=== PATIENT | female | born 1995 | race Caucasian/White ===

== ENCOUNTER 2019-02-08 23:30 | Emergency (ER) | payer OTHER ==
--- NOTE | 2019-02-09 00:24 | ER Document Report ---
ED Medical Screen (RME) - General Chief Complaint: Overdose Stated Complaint: POSSIBLE OVER DOSE Time Seen by Provider: 02/09/19 00:16 Mode of Arrival: Medic Information source: Patient Notes: 24-year-old female presented to ED for possible overdose. She states he was seen in her home by EMS and they gave her Narcan at the home for overdose. She states she does not know what she overdosed on. She states she has no idea what she took tonight. She states she thought she was smoking pot and snorting a line of cocaine. She states he has never had anything like this before. She is alert and answering questions at this time. She states she does smoke pot occasionally and this is her third time of using cocaine. She states she lives with her significant other. She does not know anything about what happened tonight except for that she was smoking pot and snorting a line. TRAVEL OUTSIDE OF THE [place] IN LAST 30 DAYS: No Physical Exam - Vital signs Vitals: Temp Pulse Resp BP Pulse Ox 97.4 F 89 20 104/64 97 02/08/19 23:37 02/08/19 23:37 02/08/19 23:37 02/08/19 23:37 02/08/19 23:37 Course - Vital Signs Vital signs: Temp Pulse Resp BP Pulse Ox 97.4 F 89 20 104/64 97 02/08/19 23:37 02/08/19 23:37 02/08/19 23:37 02/08/19 23:37 02/08/19 23:37
--- NOTE | 2019-02-09 00:38 | ER Document Report ---
ED General - General Chief Complaint: Overdose Stated Complaint: POSSIBLE OVER DOSE Time Seen by Provider: 02/09/19 00:16 Primary Care Provider: [facility] [Provider Group] - Follow up as needed Mode of Arrival: Medic TRAVEL OUTSIDE OF THE [place] IN LAST 30 DAYS: No - HPI Notes: Patient is a 24-year-old female that presents to the emergency department for chief complaint of overdose. Patient states that tonight she was smoking marijuana and snorted what she believed was a line of cocaine. She states it was a white powdery substance. She did not ask the people with the drugs from what it was and just assumed it was cocaine. Patient did receive 2 mg intranasal Narcan by EMS in the field for shallow respirations. Narcan reversed her altered mentation. Patient has been ambulatory and conversational since receiving Narcan. She denies history of opiate abuse in the past. She denied any intentional self-harm tonight. Patient denies any alcohol ingestion. Currently she is complaining of a mild diffuse headache and feeling tired. Past Medical History: Depression, anxiety Past Surgical History: Tonsillectomy Social History: Occasional marijuana, occasional cocaine, denies tobacco use Family History: Reviewed and noncontributory for presenting illness Allergies: Reviewed, see documented allergy list. REVIEW OF SYSTEMS: CONSTITUTIONAL : No fever No chills No diaphoresis No recent illness Fatigue EENT: No vision changes No congestion No sore throat CARDIOVASCULAR: No chest pain No palpitations RESPIRATORY: No shortness of breath No cough No difficulty breathing GASTROINTESTINAL: No abdominal pain No nausea No vomiting No diarrhea GENITOURINARY: No dysuria No hematuria No difficulty urinating MUSCULOSKELETAL: No back pain No leg pain No arm pain SKIN: No rashes No lesions LYMPHATIC: No swollen, enlarged glands. NEUROLOGICAL: No lightheadedness headache No weakness No paresthesias PSYCHIATRIC: No anxiety No depression PHYSICAL EXAMINATION: Vital signs reviewed, nursing noted reviewed. GENERAL: Mildly somnolent, well-nourished and in no acute distress. HEAD: Atraumatic, normocephalic. EYES: Pupils +2 and symmetric and reactive to light bilaterally, extraocular movements intact, sclera anicteric, conjunctiva are injected ENT: nares patent, oropharynx clear without exudates. Moist mucous membranes. NECK: Normal range of motion, supple without lymphadenopathy LUNGS: Breath sounds clear to auscultation bilaterally and equal. No wheezes rales or rhonchi. HEART: Regular rate and rhythm without murmurs ABDOMEN: Soft, nontender, normoactive bowel sounds. No rebound, guarding, or rigidity. No masses appreciated. EXTREMITIES: Nontender, good range of motion, no pitting or edema. NEUROLOGICAL: No focal neurological deficits. Moves all extremities spontaneously Motor and sensory grossly intact on exam. PSYCH: Normal mood, normal affect. Not suicidal SKIN: Warm, Dry, normal turgor, no rashes or lesions noted on exposed skin Past Medical History - General Information source: Patient - Social History Smoking Status: Current Every Day Smoker Family History: Reviewed & Not Pertinent Physical Exam - Vital signs Vitals: Temp Pulse Resp BP Pulse Ox 97.4 F 89 20 104/64 97 02/08/19 23:37 02/08/19 23:37 02/08/19 23:37 02/08/19 23:37 02/08/19 23:37 Course - Re-evaluation Re-evalutation: 02/09/19 00:36 Vitals reviewed. Nursing notes reviewed. Patient is ambulatory and oxygenating well on room air. She does have conjunctival injection and is mildly somnolent consistent with opiate overdose and marijuana use. Patient received 2 mg of in tranasal Narcan in the field which reversed her overdose, this is consistent with acute opiate overdose. Patient's overdose was accidental and she is not actively suicidal. Patient placed on telemetry monitoring. She will be monitored in the emergency room for recurrence of her unresponsive state. 02/09/19 01:20 After my initial evaluation patient did become more somnolent and O2 dropped to 88% on room air. She was given a repeat dose of 2 mg IV Narcan which did improve her mentation. She is still somnolent however her O2 is now 99% on RA. We will continue to monitor 02/09/19 01:44 Patient's urine drug screen is positive for amphetamines, she states she is taking Adderall currently for ADHD. She denies methamphetamine use. Patient screen was negative for opiates and I did discuss this finding with the laborer general who believes fentanyl would not show positive on the initial test. Confirmatory fentanyl testing has been ordered on her urine which will take reportedly 1 to 4 days to result. 02/09/19 04:12 Since receiving the Narcan in the emergency room patient has remained alert and has been oxygenating well on room air. She has ambulated without difficulty. She is speaking in full sentences. Patient has a mild urinary tract infection and leukocytosis but is otherwise stable with no sepsis. She will be started on Keflex for her acute UTI. We did discuss stopping illicit drug use and she was referred to [facility] for addiction medicine follow-up. She will be given [facility] for urinary tract infection follow-up. Patient is stable for discharge. Laboratory 02/09/19 02/09/19 02/09/19 00:40 00:40 03:00 WBC 13.5 H RBC 4.36 Hgb 10.9 L Hct 34.1 L MCV 78 L MCH 25.0 L MCHC 32.1 RDW 15.7 H Plt Count 332 Seg Neutrophils % 88.8 H Lymphocytes % 5.9 L Monocytes % 4.9 Eosinophils % 0.0 Basophils % 0.4 Absolute Neutrophils 12.0 H Absolute Lymphocytes 0.8 Absolute Monocytes 0.7 Absolute Eosinophils 0.0 Absolute Basophils 0.1 Sodium Potassium Chloride Carbon Dioxide Anion Gap BUN Creatinine Est GFR ( Amer) Est GFR (Non-Af Amer) Glucose Calcium Urine Color YELLOW Urine Appearance CLOUDY Urine pH 6.0 Ur Specific Chad[place] 1.020 Urine Protein 30 H Urine Glucose (UA) 150 H Urine Ketones NEGATIVE Urine Blood NEGATIVE Urine Nitrite NEGATIVE Urine Bilirubin NEGATIVE Urine Urobilinogen NEGATIVE Ur Leukocyte Esterase MODERATE H Urine WBC (Auto) 9 Urine RBC (Auto) 1 Squamous Epi Cells Auto 4 Amorphous Sediment Auto TRACE Urine Mucus (Auto) FEW Urine Ascorbic Acid NEGATIVE Urine Opiates Screen NEGATIVE Urine Methadone Screen NEGATIVE Ur Barbiturates Screen NEGATIVE Ur Phencyclidine Scrn NEGATIVE Ur Amphetamines Screen UNCONFIRMED POSITIVE U Benzodiazepines Scrn NEGATIVE Urine Cocaine Screen NEGATIVE U Marijuana (THC) Screen UNCONFIRMED POSITIVE Serum Alcohol 02/09/19 03:00 WBC RBC Hgb Hct MCV MCH MCHC RDW Plt Count Seg Neutrophils % Lymphocytes % Monocytes % Eosinophils % Basophils % Absolute Neutrophils Absolute Lymphocytes Absolute Monocytes Absolute Eosinophils Absolute Basophils Sodium 143.1 Potassium 4.4 Chloride 106 Carbon Dioxide 29 Anion Gap 8 BUN 8 Creatinine 0.68 Est GFR ( Amer) > 60 Est GFR (Non-Af Amer) > 60 Glucose 133 H Calcium 9.3 Urine Color Urine Appearance Urine pH Ur Specific Chad[place] Urine Protein Urine Glucose (UA) Urine Ketones Urine Blood Urine Nitrite Urine Bilirubin Urine Urobilinogen Ur Leukocyte Esterase Urine WBC (Auto) Urine RBC (Auto) Squamous Epi Cells Auto Amorphous Sediment Auto Urine Mucus (Auto) Urine Ascorbic Acid Urine Opiates Screen Urine Methadone Screen Ur Barbiturates Screen Ur Phencyclidine Scrn Ur Amphetamines Screen U Benzodiazepines Scrn Urine Cocaine Screen U Marijuana (THC) Screen Serum Alcohol < 10 Chest X-Ray 02/09/19 00:17 IMPRESSION: No acute cardiopulmonary findings. Head CT 02/09/19 00:46 IMPRESSION: No acute intracranial findings. - Vital Signs Vital signs: Temp Pulse Resp BP Pulse Ox 97.4 F 89 17 128/75 H 97 02/08/19 23:37 02/08/19 23:37 02/09/19 03:00 02/09/19 01:00 02/09/19 03:00 - Laboratory Result Diagrams: 02/09/19 03:00 02/09/19 03:00 Laboratory results interpreted by me: 02/09/19 02/09/19 02/09/19 00:40 03:00 03:00 WBC 13.5 H Hgb 10.9 L Hct 34.1 L MCV 78 L MCH 25.0 L RDW 15.7 H Seg Neutrophils % 88.8 H Lymphocytes % 5.9 L Absolute Neutrophils 12.0 H Glucose 133 H Urine Protein 30 H Urine Glucose (UA) 150 H Ur Leukocyte Esterase MODERATE H - EKG Interpretation by Me Additional EKG results interpreted by me: 02/09/19 00:38 Interpreted by myself 0030: Normal sinus rhythm, rate 69, normal axis, no ectopy, no STEMI Discharge - Discharge Clinical Impression: Acute UTI Opiate overdose Qualifiers: Encounter type: initial encounter Injury intent: accidental or unintentional Qualified Code(s): T40.601A - Poisoning by unspecified narcotics, accidental (unintentional), initial encounter Anemia Qualifiers: Anemia type: unspecified type Qualified Code(s): D64.9 - Anemia, unspecified Condition: Stable Disposition: HOME, SELF-CARE Instructions: Overdose ([facility]), Urinary Tract Infection ([facility]), Cephalexin ([facility]), Anemia ([facility]) Additional Instructions: Please return to the emergency department if you have any worsening, or concern of your symptoms. Please return to the emergency department if you develop chest pain, difficulty breathing, severe abdominal pain, or ongoing vomiting. Please follow-up with your primary care physician in 2-3 days and any other recommended physicians. If prescribed, take all medications as directed. If you have any questions or concerns do not hesitate to return the emergency department for evaluation. Do not snort, ingest, smoke, or inject any illicit drugs. Prescriptions: Cephalexin Monohydrate [Keflex 500 mg Capsule] 500 mg PO Q6H 5 Days capsule Referrals: [facility] [Provider Group] - Follow up as needed [facility] [Provider Group] - Follow up in 3-5 days
[2019-02-09] MEDS ORDERED: NALOXONE HCL INJ 2 MG/2 ML DISP.SYRIN IV ONE (00:58)
[2019-02-09 01:08] LABS: AMORPHOUS SEDIMENT,URINE TRACE /HPF; APPEARANCE,URINE CLOUDY; BILIRUBIN,URINE NEGATIVE (NEGATIVE); COLOR,URINE YELLOW; GLUCOSE, URINE 150 mg/dL (NEGATIVE); KETONES,URINE NEGATIVE (NEGATIVE); LEUKOCYTE ESTERASE,URINE MODERATE (NEGATIVE); NITRITE,URINE NEGATIVE (NEGATIVE); PROTEIN,URINE 30 mg/dL (NEGATIVE); UROBILINOGEN,URINE NEGATIVE mg/dL (<2.0)
[2019-02-09 01:24] LABS: URINE AMPHETAMINES SCREEN UNCONFIRMED POSITIVE; URINE BARBITURATES SCREEN NEGATIVE; URINE BENZODIAZEPINES SCREEN NEGATIVE; URINE COCAINE SCREEN NEGATIVE; URINE MARIJUANA (THC) SCREEN UNCONFIRMED POSITIVE; URINE METHADONE SCREEN NEGATIVE; URINE PHENCYCLIDINE SCREEN NEGATIVE
--- NOTE | 2019-02-09 01:58 | RADIOLOGY REPORT (SQ) ---
CLINICAL HISTORY: headache COMPARISON: None. TECHNIQUE: CT HEAD WITHOUT IV CONTRAST on 02/09/2019 12:46 AM CDT This exam was performed according to our departmental dose-optimization program, which includes automated exposure control, adjustment of the mA and/or kV according to patient size and/or use of iterative reconstruction technique. FINDINGS: There is no acute hemorrhage, mass effect or midline shift. Hunter-white differentiation is preserved. There is no hydrocephalus. There is no significant volume loss for age. The calvarium is intact. Orbits and globes are unremarkable. The paranasal sinuses are clear. Mastoid air cells are clear. IMPRESSION: No acute intracranial findings.
--- NOTE | 2019-02-09 02:10 | RADIOLOGY REPORT (SQ) ---
EXAM DESCRIPTION: XR CHEST 2 VIEWS COMPLETED DATE/TME: 02/09/2019 00:17 CLINICAL HISTORY: 24 years Female, Drug overdose has received Narcan by EMS COMPARISON: None. NUMBER OF VIEWS/TECHNIQUE: 2, Frontal, Lateral FINDINGS: Adequate lung volume, clear parenchyma, normal cardiac silhouette, and intact bony thorax. IMPRESSION: No acute cardiopulmonary findings.
[2019-02-09 03:27] LABS: ABSOLUTE BASOPHILS # (AUTO) 0.1 10^3/uL (0.0-0.2); ABSOLUTE LYMPHOCYTES (AUTO) 0.8 10^3/uL (0.5-4.7); ABSOLUTE MONOCYTES (AUTO) 0.7 10^3/uL (0.1-1.4); BASOPHILS % (AUTO) 0.4 % (0-2); HEMATOCRIT 34.1 % (36.0-47.0); HEMOGLOBIN 10.9 g/dL (12.0-15.5); LYMPHOCYTES % (AUTO) 5.9 % (13-45); MEAN CORPUSCULAR HGB CONC 32.1 g/dL (32.0-36.0); MEAN CORPUSCULAR VOLUME 78 fl (80-97); MONOCYTES % (AUTO) 4.9 % (3-13); PLATELET COUNT 332 10^3/uL (150-450); RED BLOOD COUNT 4.36 10^6/uL (3.72-5.28); RED CELL DISTRIBUTION WIDTH 15.7 % (11.5-14.0); SEGMENTED NEUTROPHILS % (AUTO) 88.8 % (42-78); TOTAL CELLS COUNTED % (AUTO) 100 %; WHITE BLOOD COUNT 13.5 10^3/uL (4.0-10.5)
[2019-02-09 03:40] LABS: ANION GAP 8 (5-19); BLOOD UREA NITROGEN 8 mg/dL (7-20); CALCIUM 9.3 mg/dL (8.4-10.2); CARBON DIOXIDE 29 mmol/L (22-30); CHLORIDE 106 mmol/L (98-107); GLUCOSE 133 mg/dL (75-110); POTASSIUM 4.4 mmol/L (3.6-5.0); SODIUM 143.1 mmol/L (137-145)
[2019-02-09 03:41] LABS: ALCOHOL < 10 mg/dL (NONE DETECTED)
[2019-02-09] MEDS ORDERED: CEPHALEXIN 500 MG CAPSULE PO ONE (04:10)
[2019-02-09 04:55] VITALS: BP 142/78
--- NOTE | 2019-02-09 07:49 | EKG REPORT ---
SEVERITY:- NORMAL ECG - SINUS RHYTHM : Confirmed by: Alexis Alvarez MD 09-Feb-2019 07:48:48
== END 2019-02-09 05:04 | disposition home or self-care (01) ==
LOC: ER 23:30
DX: N39.0 Urinary tract infection, site not specified (principal); T40.601A Poisoning by unspecified narcotics, accidental (unintentional), initial encounter; D64.9 Anemia, unspecified; R51 Headache; R53.83 Other fatigue; F90.9 Attention-deficit hyperactivity disorder, unspecified type; F17.200 Nicotine dependence, unspecified, uncomplicated
CPT/HCPCS: 93005; 99284; 96374; 36415; 80307 ×2; 85025; 80048; 81001; 71046; 70450; 93010; J2310

== ENCOUNTER 2019-09-20 06:27 | Emergency (ER) | payer OTHER ==
[2019-09-20 07:10] LABS: ABSOLUTE BASOPHILS # (AUTO) 0.1 10^3/uL (0.0-0.2); ABSOLUTE LYMPHOCYTES (AUTO) 1.4 10^3/uL (0.5-4.7); ABSOLUTE MONOCYTES (AUTO) 0.5 10^3/uL (0.1-1.4); ABSOLUTE NEUT (AUTO) 6.5 10^3/uL (1.7-8.2); BASOPHILS % (AUTO) 0.8 % (0-2); EOSINOPHILS % (AUTO) 0.3 % (0-6); HEMATOCRIT 38.3 % (36.0-47.0); HEMOGLOBIN 13.1 g/dL (12.0-15.5); LYMPHOCYTES % (AUTO) 16.2 % (13-45); MEAN CORPUSCULAR HEMOGLOBIN 29.1 pg (27.0-33.4); MEAN CORPUSCULAR HGB CONC 34.2 g/dL (32.0-36.0); MEAN CORPUSCULAR VOLUME 85 fl (80-97); MONOCYTES % (AUTO) 6.1 % (3-13); PLATELET COUNT 338 10^3/uL (150-450); RED CELL DISTRIBUTION WIDTH 14.8 % (11.5-14.0); SEGMENTED NEUTROPHILS % (AUTO) 76.6 % (42-78); TOTAL CELLS COUNTED % (AUTO) 100 %; WHITE BLOOD COUNT 8.4 10^3/uL (4.0-10.5)
[2019-09-20 07:32] LABS: ALKALINE PHOSPHATASE 83 U/L (38-126); ANION GAP 14 (5-19); ASPARTATE AMINO TRANSFERASE 29 U/L (14-36); BILIRUBIN,DIRECT 0.2 mg/dL (0.0-0.4); BILIRUBIN,TOTAL 0.8 mg/dL (0.2-1.3); BLOOD UREA NITROGEN 5 mg/dL (7-20); CALCIUM 10.3 mg/dL (8.4-10.2); CARBON DIOXIDE 21 mmol/L (22-30); CHLORIDE 105 mmol/L (98-107); GLUCOSE 88 mg/dL (75-110); POTASSIUM 3.9 mmol/L (3.6-5.0); TOTAL PROTEIN 8.3 g/dL (6.3-8.2)
[2019-09-20] MEDS ORDERED: DICYCLOMINE HCL INJ 20 MG/2 ML AMPULE IM ONE (08:09)
[2019-09-20] MEDS ORDERED: NORMAL SALINE 1000 ML 1,000 ML IV ONE (08:09)
[2019-09-20] MEDS ORDERED: ONDANSETRON HCL INJ/PF 4 MG/2 ML SDV IV ONE (08:09)
[2019-09-20] MEDS ORDERED: KETOROLAC TROMETHAMINE 60 MG/2 ML SDV IV ONE (08:09)
--- NOTE | 2019-09-20 08:22 | ER Document Report ---
ED General - General Chief Complaint: Vomiting Stated Complaint: VOMITING BLOOD,STOMACH PAIN,DIZZY Time Seen by Provider: 09/20/19 07:45 Notes: 24-year-old female presents emergency department complaining of intermittent severe migratory abdominal pain that is gotten worse over the past 2 nights. It was associated with nausea 2 nights ago and she developed vomiting last evening. Emesis was initially clear but then progressed to having streaks of blood in it. No massive hematemesis. Patient states that the pain started in her upper abdomen and has now moved to her lower abdomen. It is associated with dysuria however she states she has recurrent UTIs and always has dysuria, states it is unchanged from baseline. States she is still taking her prophylactic Macrodantin prescribed by her urologist. Denies any fevers. TRAVEL OUTSIDE OF THE [place] IN LAST 30 DAYS: No - Related Data Allergies/Adverse Reactions: No Known Allergies Allergy (Verified 09/20/19 08:15) Home Medications: adderall. xanax Past Medical History - General Information source: Patient - Social History Smoking Status: Never Smoker Chew tobacco use (# tins/day): No Frequency of alcohol use: Social Drug Abuse: None Family History: Reviewed & Not Pertinent Patient has suicidal ideation: No Patient has homicidal ideation: No Renal/ Medical History: Denies: Hx Peritoneal Dialysis Past Surgical History: Reports: Hx Breast Surgery - right lumpectomy, Hx Tons illectomy Review of Systems - Review of Systems Constitutional: No symptoms reported EENT: No symptoms reported Respiratory: No symptoms reported Gastrointestinal: See HPI Genitourinary: See HPI Female Genitourinary: denies: Vaginal discharge, Vaginal bleeding -: Yes All other systems reviewed and negative Physical Exam - Vital signs Vitals: Temp Pulse Resp BP Pulse Ox 97.6 F 91 18 134/84 H 100 09/20/19 06:37 09/20/19 06:37 09/20/19 06:37 09/20/19 06:37 09/20/19 06:37 Interpretation: Normal - Notes Notes: GENERAL: Alert, interacts well. No acute distress. HEAD: Normocephalic, atraumatic EYES: Pupils equal, round and reactive to light, extraocular movements intact. ENT: Oral mucosa moist, tongue midline. NECK: Full range of motion, supple, trachea midline. LUNGS: Clear to auscultation bilaterally, no wheezes, rales or rhonchi, no respiratory distress. HEART: Regular rate and rhythm, no murmurs, gallops, rubs. ABDOMEN: Soft, suprapubic, right lower quadrant and right mid abdominal tenderness palpation without guarding, rigidity, rebounding, nondistended, bowel sounds present in all 4 quadrants. EXTREMITIES: Moves all 4 extremities spontaneously, no edema, radial and dorsalis pedis pulses 2/4 bilaterally. No cyanosis. NEUROLOGICAL: Alert and oriented x3, normal speech. PSYCH: Normal mood, normal affect. SKIN: Warm, Dry, normal turgor, no rashes or lesions noted. Course - Re-evaluation Re-evalutation: 09/20/19 09:56 CBC unremarkable, no anemia, CMP shows slightly low CO2 at 21 otherwise unremarkable, lipase normal, hCG negative, urinalysis shows moderate blood and large leukocyte esterase, this is concerning for possible infected obstructing stone, CT scan was ordered, does not show any signs of stone, appendix is normal. Urine is sent for culture. Patient has a history of recurrent urinary tract infection. Also has a history of not completing her course of treatment when diagnosed with UTI per boyfriend at bedside. Patient is strongly encouraged to finish her antibiotics and follow-up with urology as an outpatient to continue working up why she has recurrent urinary tract infections. Patient also admits to incomplete bladder emptying that has been going on for several years. Again patient is encouraged to follow-up with urology as an outpatient. Discharged home. 09/20/19 09:57 Photograph of patient's emesis is shown to me at bedside, there are very small streaks of blood, no evidence of massive hematemesis. Suspect Rossy-Mix tears from repeated gagging and vomiting. No evidence of life-threatening etiology. No indication for Carafate or antacids. - Vital Signs Vital signs: Temp Pulse Resp BP Pulse Ox 97.6 F 91 18 134/84 H 100 09/20/19 06:37 09/20/19 06:37 09/20/19 06:37 09/20/19 06:37 09/20/19 06:37 - Laboratory Result Diagrams: 09/20/19 06:50 09/20/19 06:50 Laboratory results interpreted by me: 09/20/19 09/20/19 09/20/19 06:50 06:50 08:00 RDW 14.8 H Carbon Dioxide 21 L BUN 5 L Calcium 10.3 H Total Protein 8.3 H Urine Protein 30 H Urine Ketones 20 H Urine Blood MODERATE H Ur Leukocyte Esterase LARGE H Discharge - Discharge Clinical Impression: Acute cystitis Qualifiers: Hematuria presence: with hematuria Qualified Code(s): N30.01 - Acute cystitis with hematuria Vomiting Qualifiers: Vomiting type: hematemesis Nausea presence: with nausea Qualified Code(s): K92.0 - Hematemesis Condition: Stable Disposition: HOME, SELF-CARE Additional Instructions: Urinary Tract Infection Your evaluation indicates that you have a urinary tract infection. This is due to germs growing in the bladder. This is a common problem. This infection usually responds quickly to antibiotics. Your antibiotic should be taken exactly as prescribed. Drink plenty of fluids -- three to four quarts a day. Occasionally, a bladder anesthetic will be prescribed to help stop the feeling of urgency until the antibiotic has a chance to clear the infection. This may cause your urine to be dark orange. This is called Azo, you may get it [id number]. It is also available in a generic form known as Pyridium. Certain urine infections require a culture. If the doctor obtained a culture, the results will be back in two days. You should call to see if a change in treatment is needed. A repeat urinalysis after you finish treatment is often recommended. The physician will let you know if further testing is required. Call the doctor if you develop fever, chills, flank pain, inability to urinate, or blood in the urine. Please continue to follow-up with your urologist as an outpatient to further determine why you do not completely empty her bladder on a regular basis and why you have recurrent urinary tract infections. Please take your antibiotic as directed until it is gone. Do not skip any doses. Do not stop the antibiotic early. Prescriptions: Sulfamethoxazole/Trimethoprim [Bactrim Ds Tablet] 1 each PO BID #10 tablet Ondansetron [Zofran Odt 4 mg Tablet] 1 - 2 tab PO Q4H PRN #15 tab.rapdis PRN Reason: For Nausea/Vomiting Forms: Return to Work
[2019-09-20 08:27] LABS: AMORPHOUS SEDIMENT,URINE TRACE /HPF; APPEARANCE,URINE CLOUDY; BILIRUBIN,URINE NEGATIVE (NEGATIVE); COLOR,URINE YELLOW; GLUCOSE, URINE NEGATIVE (NEGATIVE); KETONES,URINE 20 mg/dL (NEGATIVE); LEUKOCYTE ESTERASE,URINE LARGE (NEGATIVE); NITRITE,URINE NEGATIVE (NEGATIVE); PROTEIN,URINE 30 mg/dL (NEGATIVE); URINE SPECIFIC GRAVITY 1.006; UROBILINOGEN,URINE NEGATIVE mg/dL (<2.0)
--- NOTE | 2019-09-20 09:09 | RADIOLOGY REPORT (SQ) ---
EXAM DESCRIPTION: CT ABD/PELVIS NO ORAL OR IV COMPLETED DATE/TIME: 09/20/2019 8:52 am REASON FOR STUDY: R flank pain, blood, r/o stone COMPARISON: None. TECHNIQUE: CT scan of the abdomen and pelvis performed without intravenous or oral contrast. Images reviewed with lung, soft tissue, and bone windows. Reconstructed coronal and sagittal MPR images revi ewed. All images stored on PACS. All CT scanners at this facility use dose modulation, iterative reconstruction, and/or weight based d osing when appropriate to reduce radiation dose to as low as reasonably achievable (ALARA). [facility]: Dose Right [facility]: CareDose [facility]: Dose Right [facility]: Teradose 4D [facility]: Smart Matches [employer] RADIATION DOSE: CT Rad equipment meets quality standard of care and radiation dose reduction techniq ues were employed. CTDIvol: 4.9 mGy. DLP: 272 mGy-cm.mGy. LIMITATIONS: Slender young female patient, very limited body fat, limited visualization of the appen gloria and adnexa FINDINGS: LOWER CHEST: No significant findings. No nodules or infiltrates. NON-CONTRASTED LIVER, SPLEEN, ADRENALS: Evaluation limited by lack of IV contrast. No identified sign ificant masses. PANCREAS: No masses. No peripancreatic inflammatory changes. GALLBLADDER: No identified stones by CT criteria. No inflammatory changes to suggest cholecystitis. RIGHT KIDNEY AND URETER: No suspicious masses. Assessment limited by lack of IV contrast. No signif icant calcifications. No hydronephrosis or hydroureter. LEFT KIDNEY AND URETER: No suspicious masses. Assessment limited by lack of IV contrast. No signifi cant calcifications. No hydronephrosis or hydroureter. AORTA AND RETROPERITONEUM: No aneurysm. No retroperitoneal masses or adenopathy. BOWEL AND PERITONEAL CAVITY: No obvious masses or inflammatory changes. No free fluid. APPENDIX: Short segment of normal appendix is visualized in the right lower quadrant adjacent to the cecum on coronal images 22 through 26 PELVIS, BLADDER, AND ABDOMINAL WALL:No abnormal masses. No free fluid. Bladder normal. Normal size f emale pelvic organs. No gross pelvic free fluid. BONES: No significant findings. OTHER: No other significant finding. IMPRESSION: Limited negative study COMMENT: Quality ID # [id number]: Final reports with documentation of one or more dose reduction techniques (e.g., Automated exposure control, adjustment of the mA and/or kV according to patient size, use of iterative reconstruction technique) TECHNICAL DOCUMENTATION: JOB ID: [id number] [employer]- All Rights Reserved Reading location - IP/workstation name: [email or web address]
[2019-09-20 10:09] VITALS: BP 121/76
== END 2019-09-20 10:26 | disposition home or self-care (01) ==
LOC: ER 06:27
DX: K92.0 Hematemesis (principal); N30.01 Acute cystitis with hematuria; R33.9 Retention of urine, unspecified; Z79.2 Long term (current) use of antibiotics; Z79.899 Other long term (current) drug therapy
CPT/HCPCS: 99284; 96372; 96361; 96374; 96375; 36415; 87086; 83690; 84703; 85025; 81025; 80053; 81001; 74176; J0500; J1885; J2405; J7030

== ENCOUNTER 2020-02-08 05:20 | Emergency (ER) | payer SELFPAY ==
[2020-02-08] MEDS ORDERED: ACETAMINOPHEN 325 MG TABLET PO ONE (05:34)
--- NOTE | 2020-02-08 07:35 | RADIOLOGY REPORT (SQ) ---
EXAM DESCRIPTION: XR HAND 3 OR MORE VIEWS COMPLETED DATE/TME: 02/08/2020 00:00 CLINICAL HISTORY: 25 years, Female, laceration COMPARISON: None. NUMBER OF VIEWS: Three TECHNIQUE: Three views of the left hand LIMITATIONS: None. FINDINGS: There is a laceration near the radial aspect of the second metacarpal neck. No radiopaque foreign body is identified. There is no acute fracture, dislocation, erosion, or periosteal reaction. Joint spaces are preserved. IMPRESSION: No acute fracture or dislocation. copyright 2010 [employer]- All Rights Reserved
[2020-02-08] MEDS ORDERED: DIPH/PERTUSS(ACELL)/TETANUS VAC/PF 0.5 ML SYR (>=10YO) IM ONE (08:25)
[2020-02-08] MEDS ORDERED: HYDROCODONE/ACETAMINOPHEN 5-325 MG TABLET PO ONE (08:25)
[2020-02-08] MEDS ORDERED: LIDOCAINE 1% INJ-PF (10 MG/ML) 30 ML SDV INJ ONE (08:26)
[2020-02-08] MEDS ORDERED: CEPHALEXIN 500 MG CAPSULE PO ONE (08:26)
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
[2020-02-08 10:48] VITALS: BP 113/74
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
== END 2020-02-08 11:24 | disposition home or self-care (01) ==
LOC: ER 05:20
DX: S61.411A Laceration without foreign body of right hand, initial encounter (principal); M54.5 Low back pain; W26.0XXA Contact with knife, initial encounter; Z23 Encounter for immunization
CPT/HCPCS: 99283; 90471; 73130; 72110; 72070; 90715; 12002; J3490

== ENCOUNTER 2020-02-20 15:20 | Emergency (ER) | payer SELFPAY ==
[2020-02-20 15:37] VITALS: BP 121/87
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
== END 2020-02-20 15:45 | disposition home or self-care (01) ==
LOC: ER 15:20
DX: S61.411D Laceration without foreign body of right hand, subsequent encounter (principal); W26.0XXD Contact with knife, subsequent encounter; R53.1 Weakness